=== PATIENT | female | born 1940 | race Hispanic/Latino ===

== ENCOUNTER 2017-06-19 14:28 | Emergency (ER) | payer MEDICARE ==
--- NOTE | 2017-06-19 15:20 | C.PDOC ---
History Of Present Illness 76 y/o female presents to ED for evaluation s/p fall [employer] and complaints of facial, right wrist, left hand and right knee injury. Patient states she tripped on side walk and fell with questionable initial loc as per witness. Now at baseline patient complaints of right wrist pain the most and denies nausea, vomiting, vision change or any other complaints at this time. S/P right cataract surgery x2 weeks ago. SP FALL [employer] CO FACIAL, R WRIST, L HAND AND R KNEE INJURY. TRIPPED ON SIDEWALK STEP AND FELL PER WITNESS. ?INITIAL LOC. NOW @ BASELINE MS. PT CO R WRIST PAIN THE MOST. NO NV. S/P R CATARACT SURGERY 2 WEEKS AGO. DENIES VISION CHANGE. EXAM MOD DIST NONTOXIC HEENT +R PERIORB INJURY W LAC; R LOWER LIP LAC; +CHIPPED TEETH R UPPER CENTRAL AND LATERAL INCISOR; NO SUBLUX, MANDIBULAR MALOCC. NO DENTALGIA. PERRLA; EOMI; NO CONJ TRAUMA. NO GROSS VISUAL DEF. NOSE CLEAR; NECK NO CSPINE TEND AROM WO DIFF CHEST ATRAUM CTA B/L NO W/R/R ABD NEG EXT R WRIST +SWELL W DEFORM W GEN TEND; L HAND +ABRASION DORSAL, AROM L WRIST, ELBOW WO DIFF. R KNEE SWELL NO DEFORM, B/L KNEE AROM WO DIFF SKIN +R LAT PERIORB LAC 2 CM; +LIP LACS, MACERATED R LOWER LIP NO ACTIVE BLEED; +ABRASION L DORSAL HAND; +ABRASION R KNEE NEURO NO FOCAL DEF REMAIUNDER NEG - HPI Time Seen by Provider: 06/19/17 14:52 Chief Complaint (Nursing): Trauma History Per: Patient History/Exam Limitations: no limitations Onset/Duration Of Symptoms: Hrs Past Medical History Reviewed: Historical Data, Nursing Documentation, Vital Signs Vital Signs: Last Vital Signs Temp 97.9 F 06/19/17 14:44 Pulse 96 H 06/19/17 17:43 Resp 20 06/19/17 17:43 BP 157/74 H 06/19/17 17:43 Pulse Ox 98 06/19/17 18:41 - Medical History PMH: Hypothyroidism Family History: States: No Known Family Hx - Social History Hx Alcohol Use: No Hx Substance Use: No Review Of Systems Except As Marked, All Systems Reviewed And Found Negative. Eyes: Negative for: Vision Change Gastrointestinal: Negative for: Nausea, Vomiting Musculoskeletal: Positive for: Hand Pain, Leg Pain Skin: Negative for: Rash Neurological: Negative for: Weakness, Numbness, Dizziness Physical Exam - Physical Exam Appears: Non-toxic, Other (Moderate distress) Skin: Normal Color, Warm, Other (Right lateral PERIORB laceration 2 cm) Head: Atraumatic, Normacephalic Eye(s): bilateral: PERRL, EOMI, right: Other (Injury w/ laceration, no conjuctival trauma) Nose: Normal, No Deformity Oral Mucosa: Moist Lips: Laceration (Macerated right lower lip no active bleeding) Teeth: No Dentures, Other (Chipped teeth to right upper central and lateral incisor, No sublux, mandibular malocc) Neck: Normal ROM, No Midline Cervical Tenderness Chest: Symmetrical, No Deformity Cardiovascular: Rhythm Regular Respiratory: Normal Breath Sounds, No Rales, No Rhonchi, No Wheezing, Other ( clear to auscultation) Gastrointestinal/Abdominal: Soft, No Tenderness, No Guarding, No Rebound Extremity: Tenderness (Right wrist), No Pedal Edema, No Calf Tenderness, Deformity (Right wrist), Swelling (Right wrist, Right knee ), Other (Abrasion to Dorsal Left hand, Abrasion to right knee) Neurological/Psych: Oriented x3, Normal Motor, Normal Sensation, Other (No focal deficits) ED Course And Treatment - Laboratory Results Result Diagrams: 06/19/17 15:33 06/19/17 15:33 ECG: Interpreted By Me, Viewed By Sd ECG Rhythm: Sinus Rhythm ECG Interpretation: Normal Rate From EC (bpm) O2 Sat by Pulse Oximetry: 98 (ra) Pulse Ox Interpretation: Normal - Radiology CXR: Interpreted by Me CXR Interpretation: Yes: No Acute Disease - Other Rad r wrist X-Ray: Interpreted by Me (radius fx) R KNEE X-Ray: Interpreted by Me (NEG) R FOREARM X-Ray: Interpreted by Me (NEG) B/L HANDS X-Ray: Interpreted by Me (NEG) Laceration - Laceration Repair No standard instances Wound Length (In cm): 2 Description Of Wound: Linear, Clean Wound Cleansed With: Sterile Saline Wound Closure: Skin Glue Orthopedic Time Performed: 15:14 Time Out: Side verified, Site verified, Patient ID confirmed Procedure: Splint Type: Short, Volar Location: Right, Wrist Consent obtained: Verbal Performed by: Attending Physician Diagnosis: Fracture Type: Closed Distal Sensation: Normal Distal Motor Function: Normal Capillary Refill: Normal Compartment: Normal Distal Sensation: Normal Distal Motor Function: Normal Patient tolerated procedure: Well Progress - Re-Evaluation Re-evaluation Note: 06/19/17 16:29 NEURO EXAM UNCH. VSS. PENDING CT REPORTS, XRAY 06/19/17 17:31 CO HEADACHE. NO NV, NECK PAIN NEW FOCAL NEURO SX. PT ADVISED OF POSSIBLE TRANSFER TO TRAUMA CENTER DUE TO CONCERN FOR CONCUSSION SYMPTOMS. PT DOES NOT WISH ADMISSION OR TRANSFER. WILL CONT OBSERVATION, PENDING FAMILY ARRIVAL. 06/19/17 18:10 FAMILY CONCERNED FOR PT GOING HOME AND ABILITY TO CARE FOR HERSELF. FAMILY REQUESTING PT TRANSFER E[facility]ER TO [facility] CLOSER TO THEIR HOME. D/W [facility] DOES NOT ACCEPT MULTI SYST TRAUMA D/W [facility], FACILITY IS NOT LEVEL I. 06/19/17 18:27 D/W [facility] Transfer Center Phone: . D/W DR ROSENBAUM ACCEPTS FOR TRANSFER [facility] FAMILY CONSENT SIGNED - Data Reviewed Data Reviewed: Lab, Diagnostic imaging, EKG, Old records - Critical Care Citical Care: Excluding Proc Time Critical Care Time: 120 minutes - Continuity of Care Discussed patient case with:: Patient, Other Disposition Counseled Patient/Family Regarding: Studies Performed, Diagnosis - Disposition Disposition: Trans to Other Acute Care Hosp Disposition Time: 18:40 Condition: STABLE Forms: [facility] (Latvian) - Clinical Impression Clinical Impression: Concussion syndrome, Face lacerations, Wrist fracture, Multiple facial fractures, Multiple abrasions - Scribe Statement The provider has reviewed the documentation as recorded by the Roibcaroline Alexander All medical record entries made by the Roibcaroline were at my direction and personally dictated by me. I have reviewed the chart and agree that the record accurately reflects my personal performance of the history, physical exam, medical decision making, and the department course for this patient. I have also personally directed, reviewed, and agree with the discharge instructions and disposition.
[2017-06-19] MEDS ORDERED: Tetanus/Diphtheria Toxoids 0.5 ml Syringe IM ONE ×2 (15:22→16:21)
[2017-06-19 15:43] LABS: BASO % 0.6 % (0.0-2.0); EOS % 0.5 % (0.0-4.0); HEMATOCRIT 42.2 % (34.0-47.0); LYMPH # 1.3 K/uL (1.0-4.3); LYMPH % 20.1 % (20.0-40.0); MEAN CELL VOLUME 86.8 fL (81.0-99.0); MEAN CORPUSCULAR HEMOGLOBIN 29.3 pg (27.0-31.0); MEAN CORPUSCULAR HGB CONC 33.8 g/dL (33.0-37.0); MONO # 0.6 K/uL (0.0-0.8); MONO % 9.3 % (0.0-10.0); RED CELL DISTRIBUTION WIDTH 13.1 % (11.5-14.5); WHITE BLOOD COUNT 6.6 K/uL (4.8-10.8)
[2017-06-19 15:52] LABS: CHLORIDE 97 mmol/L (98-107); POTASSIUM 3.6 mmol/L (3.6-5.2); SODIUM 134 mmol/L (132-148)
[2017-06-19 15:54] LABS: BILIRUBIN,TOTAL 0.8 mg/dL (0.2-1.3); GFR AFRICAN-AMERICAN > 60
[2017-06-19 15:55] LABS: ALB/GLOB RATIO 1.3 (1.0-2.1); ALKALINE PHOSPHATASE 177 U/L (38-126); ALT/SGPT 33 U/L (9-52); AST/SGOT 32 U/L (14-36); BLOOD UREA NITROGEN 12 mg/dL (7-17); CALCIUM 9.6 mg/dl (8.6-10.4); CARBON DIOXIDE 25 mmol/L (22-30); GLUCOSE,RANDOM 111 mg/dL (65-105); TOTAL PROTEIN 7.2 g/dL (6.3-8.3)
--- NOTE | 2017-06-19 16:16 | CT ---
PROCEDURE: CT Cervical Spine without contrast HISTORY: <TRAUMA> COMPARISON: None available. TECHNIQUE: Axial computed tomography images were obtained of the cervical spine without the use of intravenous contrast. Coronal and sagittal reformatted images were created and reviewed. Radiation dose: Total exam DLP = 368.50 mGy-cm. This CT exam was performed using one or more of the following dose reduction techniques: Automated exposure control, adjustment of the mA and/or kV according to patient size, and/or use of iterative reconstruction technique. FINDINGS: VERTEBRAE: The vertebral bodies are maintained in height. Normal alignment is maintained. There is an exaggerated lordosis of the cervical spine, of no probable clinical significance. The atlantoaxial articulation and odontoid process are intact. DISCS/SPINAL CANAL/NEURAL FORAMINA: There is no significant central spinal stenosis. Multilevel neural foraminal stenosis is noted as result of spondylotic ridging and degenerative facet arthropathy. Discs heights are grossly preserved. PARASPINAL SOFT TISSUES: Unremarkable. OTHER FINDINGS: Visualized portions of the facial bones demonstrate comminuted fracture posterior wall right maxillary antrum with fracture of the medial wall and fracture of the lateral wall as well as fracture of the lateral wall of the left maxillary antrum. Correlation with CT of the facial bones is advised. IMPRESSION: No fracture/ dislocation of cervical spine. Bilateral maxillary fractures as described.
--- NOTE | 2017-06-19 16:19 | CT ---
PROCEDURE: CT HEAD WITHOUT CONTRAST. HISTORY: TRAUMA COMPARISON: None available. TECHNIQUE: Axial computed tomography images were obtained through the head/brain without intravenous contrast. Radiation dose: Total exam DLP = 1026.65 mGy-cm. This CT exam was performed using one or more of the following dose reduction techniques: Automated exposure control, adjustment of the mA and/or kV according to patient size, and/or use of iterative reconstruction technique. FINDINGS: HEMORRHAGE: No intracranial hemorrhage. BRAIN: Diffuse atrophy with prominence of the ventricles and sulci noted. No mass effect or edema. The amaya-white matter differentiation appears intact. Please note that MRI with diffusion imaging is more sensitive in the detection of acute ischemic event. VENTRICLES: No hydrocephalus. CALVARIUM: Unremarkable. PARANASAL SINUSES: Fluid levels within bilateral maxillary sinuses. Evidence of right orbital floor fracture. Right maxillary anterior wall, medial wall and lateral wall fracture deformities. Left anterior and medial wall maxillary sinus fractures. MASTOID AIR CELLS: Unremarkable as visualized. No inflammatory changes. OTHER FINDINGS: None. IMPRESSION: Fluid levels within bilateral maxillary sinuses. High density material within bilateral maxillary sinuses presumed to reflect blood products. Evidence of right orbital floor fracture. Right maxillary anterior wall, medial wall and lateral wall fracture deformities. Left anterior and medial wall maxillary sinus fractures. Please refer to CT of the maxillofacial bones scheduled to follow for more detailed discussion.
[2017-06-19] MEDS ORDERED: Bacitracin 500 Units/gm Oint Foilpak UD ONE (16:20)
[2017-06-19] MEDS ORDERED: Clindamycin 300 MG in Sodium Chloride 0.9% 50 ML IV STA (16:24)
--- NOTE | 2017-06-19 16:39 | CT ---
PROCEDURE: CT MAXILLOFACIAL BONES WITHOUT CONTRAST HISTORY: R FACIAL TRAUMA COMPARISON: None TECHNIQUE: Contiguous axial CT images of the maxillofacial bones were obtained. Coronal and sagittal reformats were generated. Radiation dose: Total exam DLP = 669.30 mGy-cm. This CT exam was performed using one or more of the following dose reduction techniques: Automated exposure control, adjustment of the mA and/or kV according to patient size, and/or use of iterative reconstruction technique. FINDINGS: NASAL BONES: Unremarkable. ORBITS: Minimally displaced fracture of the right orbital floor. No evidence of herniation of orbital contents. No intraorbital hemorrhage appreciated. The lamina papyracea is intact bilaterally. PARANASAL SINUSES/ MASTOIDS: Clear. MAXILLA: Fracture anterior, medial and lateral pina right maxillary sinus. Fracture lateral and medial wall of left maxillary sinus inferiorly. Air-fluid level in both maxillary antra. MANDIBLE/ TEMPOROMANDIBULAR JOINTS: Unremarkable. SKULL BASE: Unremarkable. TEMPORAL BONES: Middle ears and mastoid grossly unremarkable. OTHER FINDINGS: None. IMPRESSION: Minimally displaced fracture right orbital floor. Extensive fracture of both maxillary sinuses, right greater than left. Bilateral maxillary air-fluid levels. No evidence of downward herniation of right orbit.
--- NOTE | 2017-06-19 17:29 | RAD ---
PROCEDURE: Right Wrist Radiographs. HISTORY: TRAUMA COMPARISON: None. FINDINGS: BONES: Bony detail is obscured by overlying fiberglass splint. There is suspected nondisplaced distal radial fracture. There is loss of the normal palmar angulation of the distal radial articular surface. There is bowing of the pronator fat pad. There is nondisplaced fracture of the ulnar styloid process. There is no other fracture identified. JOINTS: Normal. No dislocation. SOFT TISSUES: Normal. OTHER FINDINGS: None. IMPRESSION: Nondisplaced distal radial fracture and nondisplaced ulnar styloid process fracture.
--- NOTE | 2017-06-19 17:30 | RAD ---
PROCEDURE: Right Knee Radiographs. HISTORY: TRAUMA COMPARISON: None. FINDINGS: BONES: Normal. No fracture. JOINTS: Medial and patellofemoral osteoarthritis. Lateral compartment is preserved. There are no articular erosions. JOINT EFFUSION: None. OTHER FINDINGS: None. IMPRESSION: No acute fracture. Medial and patellofemoral osteoarthritis.
[2017-06-19] MEDS ORDERED: Sodium Chloride 0.9% 500 ML IV ONE ×2 (17:32→17:47)
--- NOTE | 2017-06-19 17:40 | RAD ---
PROCEDURE: Bilateral hand radiographs. HISTORY: TRAUMA COMPARISON: None. FINDINGS: BONES: Right Hand: No fracture. Left Hand: No fracture. JOINTS: Right Hand: Osteoarthritis MCP 1 and IP 1. Osteoarthritis DIP 2 through 4. Left Hand: Osteoarthritis DIP 2 through 4. SOFT TISSUES: Right Hand: Normal. Left Hand: Normal. OTHER FINDINGS: None. IMPRESSION: No acute fracture. Bilateral osteoarthritis.
--- NOTE | 2017-06-19 17:49 | RAD ---
PROCEDURE: Radiographs of the Right Forearm HISTORY: TRAUMA COMPARISON: None available. TECHNIQUE: Frontal and lateral views obtained. FINDINGS: BONES: Bony detail is obscured by fiberglass splint. Suspected nondisplaced distal radial fracture. Nondisplaced ulnar styloid process fracture. No other fracture identified. JOINT SPACES: Unremarkable. OTHER FINDINGS: None. IMPRESSION: Suspected nondisplaced distal radial fracture and ulnar styloid process fracture.
--- NOTE | 2017-06-19 17:49 | RAD ---
PROCEDURE: CHEST RADIOGRAPH, 1 VIEW HISTORY: TRAUMA COMPARISON: None available. FINDINGS: LUNGS: Clear. PLEURA: No pneumothorax or pleural fluid seen. CARDIOVASCULAR: Normal. OSSEOUS STRUCTURES: No significant abnormalities. VISUALIZED UPPER ABDOMEN: Normal. OTHER FINDINGS: None. IMPRESSION: No active disease.
[2017-06-19 19:01] VITALS: TEMP 98
[2017-06-19 20:54] VITALS: BP 140/70; PULSE 70; RESP 14; O2SAT 98
--- NOTE | 2017-06-22 20:54 | CARD ---
APPROVED REPORT EKG Measurement Heart [id number] <Conclusion> Normal sinus rhythm Normal ECG
== END 2017-06-19 21:05 | disposition short-term general hospital (02) ==
LOC: C.ER 14:28
DX: S52.591A Other fractures of lower end of right radius, initial encounter for closed fracture (principal); S02.31XA Fracture of orbital floor, right side, initial encounter for closed fracture; S06.0X9A Concussion with loss of consciousness of unspecified duration, initial encounter; W01.0XXA Fall on same level from slipping, tripping and stumbling without subsequent striking against object, initial encounter; Y93.01 Activity, walking, marching and hiking; Y92.480 Sidewalk as the place of occurrence of the external cause
CPT/HCPCS: 29125; 70450; 70486; 71010; 72125; 73090; 73110; 73130; 73562; 80053; 85025; 85610; 85730; 90471; 90714; 93005; 96365; 96375; 96376; 99285; J2270; J2405; J7040